=== PATIENT | male | born 1965 | race Hispanic/Latino ===

== ENCOUNTER 2022-11-10 08:36 | Outpatient (CLI) | payer OTHER | END 2022-11-10 08:37 | disposition home or self-care (01) | LOC: CSHRAD 08:36 | PROVIDERS: ATTEND Family Medicine | DX: R05.9 Cough, unspecified (principal); R06.02 Shortness of breath; R06.09 Other forms of dyspnea; R91.8 Other nonspecific abnormal finding of lung field; M47.26 Other spondylosis with radiculopathy, lumbar region | CPT/HCPCS: 71045; 72100 ==

== ENCOUNTER 2022-12-12 14:13 | Outpatient (CLI) | payer OTHER | END 2022-12-12 14:14 | disposition home or self-care (01) | LOC: CSHMRI 14:13 | PROVIDERS: ATTEND Family Medicine | DX: R05.2 Subacute cough (principal); R06.02 Shortness of breath; R06.09 Other forms of dyspnea; M54.16 Radiculopathy, lumbar region; R91.1 Solitary pulmonary nodule; M47.816 Spondylosis without myelopathy or radiculopathy, lumbar region; M43.16 Spondylolisthesis, lumbar region | CPT/HCPCS: 71046; 72120; 72148 ==

== ENCOUNTER 2022-12-30 11:33 | Outpatient (CLI) | payer OTHER | END 2022-12-30 11:34 | disposition home or self-care (01) | LOC: CSHRAD 11:33 | PROVIDERS: ATTEND Family Medicine | DX: M25.511 Pain in right shoulder (principal) ==

== ENCOUNTER 2023-04-18 15:21 | Outpatient (CLI) | payer OTHER | END 2023-04-18 15:22 | disposition home or self-care (01) | LOC: CSHMRI 15:21 | PROVIDERS: ATTEND Neurological Surgery | DX: M47.22 Other spondylosis with radiculopathy, cervical region (principal); M48.02 Spinal stenosis, cervical region; R91.1 Solitary pulmonary nodule; R05.3 Chronic cough | CPT/HCPCS: 71046; 72141 ==

== ENCOUNTER 2024-03-13 05:38 | Emergency (ER) | payer OTHER ==
[2024-03-13] MEDS ORDERED: Ondansetron PF 4 MG/2 ML Vial ONE (06:07)
[2024-03-13] MEDS ORDERED: Metoprolol Tartrate 5 MG (5 mL) VIAL ONE (06:08)
[2024-03-13] MEDS ORDERED: Insulin Regular, Human 100 UNIT/ML 10 ML VIAL ONE (06:08)
[2024-03-13] MEDS ORDERED: Labetalol HCl 100 MG/20 ML VIAL ONE (06:09)
[2024-03-13 06:23] LABS: #Basophils 0.06 10x3/uL (0.0-0.2); #Eosinophils 0.09 10x3/uL (0.0-0.5); #Monocytes 0.71 10x3/uL (0.0-1.1); #Neutrophils 4.45 10x3/uL (1.5-8.4); %Basophils 0.8 % (0.0-2.0); %Eosinophils 1.2 % (0.0-6.0); %Lymphocytes 28.2 % (18.0-47.0); %Monocytes 9.5 % (0.0-10.0); %Neutrophils 59.6 % (40.0-75.0); Hematocrit 41.9 % (38.8-50.0); Hemoglobin 14.2 g/dL (13.5-17.5); Mean Corpuscular HGB CONC 33.9 g/dL (32.0-36.0); Mean Corpuscular Hemoglobin 28.1 pg (27.0-33.0); Mean Corpuscular Volume 82.8 fL (81.2-95.1); Mean Platelet Volume 9.8 fL (7.4-10.4); Platelet Count 204 10x3/uL (150-450); RBC Distribution Width 12.6 % (11.5-14.5); Red Blood Cell (RBC) Count 5.06 10x6/uL (4.32-5.72); White Blood Cell (WBC) Count 7.5 10x3/uL (3.5-10.5)
[2024-03-13 06:37] LABS: ALT (SGPT) 46 U/L (8-55); AST (SGOT) 31 U/L (5-34); Albumin 3.9 g/dL (3.5-5.0); Alkaline Phosphatase 53 U/L (40-110); Anion Gap 20 mmol/L (10-20); BUN (Urea Nitrogen) 16 mg/dL (8.4-25.7); Bilirubin, Total 0.6 mg/dL (0.2-1.2); Calc. Creatinine Clearance 0 mL/min (70-130); Calcium 9.5 mg/dL (7.8-10.44); Carbon Dioxide 19 mmol/L (22-29); Chloride 101 mmol/L (98-107); Estimated GFR 73; Globulin 3.4 g/dL (2.4-3.5); Glucose 328 mg/dL (70-105); Lipase 68 U/L (8-78); Potassium 4.5 mmol/L (3.5-5.1); Protein, Total 7.3 g/dL (6.0-8.3); Sodium 135 mmol/L (136-145)
[2024-03-13 06:43] LABS: Troponin I Less than 0.010 ng/mL (< 0.028)
[2024-03-13] MEDS ORDERED: hydrALAZINE 20 MG/ML VIAL ONE (07:58)
[2024-03-13 09:05] LABS: Bilirubin Neg (Negative); Blood, Urine Negative (Negative); Clarity Slightly Cloudy (Clear); Glucose, Urine (Dipstick) >=1000 mg/dL (Negative); Ketone, Urine Negative (Negative); Leukocyte Negative (Negative); Nitrite Negative (Negative); Protein, Urine (Dipstick) 500 mg/dl (Neg-Trace); Specific Gravity, Urine 1.025 (1.005-1.030); Urobilinogen Normal mg/dL (Less than 2)
[2024-03-13 09:12] LABS: Acetaminophen Less than 10 mcg/mL (Less than 10); Alcohol Less than 10.0 mg/dL (Less than 10); Salicylate Less than 8.0 mg/dL (Less than 8.0)
[2024-03-13 09:12] LABS: Amphetamine Not Detected (NotDetected); Barbiturates Screen Not Detected (NotDetected); Benzodiazepine Screen Not Detected (NotDetected); Cocaine Metabolite Screen Not Detected (NotDetected); Methadone Not Detected (NotDetected); Methamphetamine Not Detected (NotDetected); Opiate Screen Not Detected (NotDetected); Oxycodone Screen Not Detected (NotDetected); Phencyclidine (PCP) Not Detected (NotDetected); THC/Cannabinoid Screen Not Detected (NotDetected); Tricyclic Screen Not Detected (NotDetected)
[2024-03-13] MEDS ORDERED: Losartan 50 MG TAB PO SCH (10:00)
[2024-03-13 10:01] LABS: Bacteria/HPF 1+ HPF (None Seen); CAUTI Indications for Culture Pelvic or flank pain; RBC/HPF 0-3 HPF (0-3); Squamous Epithelial 0-3 HPF (0-3); WBC/HPF 0-3 HPF (0-3)
[2024-03-13 10:02] LABS: Urine Culture Reflex No No
== END 2024-03-13 14:08 | disposition home or self-care (01) ==
LOC: CSHERS 05:38
DX: F32.A Depression, unspecified (principal); I10 Essential (primary) hypertension
CPT/HCPCS: 36416; 80053; 80306; 80307; 81001; 83605; 83690; 84484; 85025; 93005; 96374; 96375; J0360; J1815; J2405

== ENCOUNTER 2025-02-04 09:33 | Outpatient (CLI) | payer MEDICARE | END 2025-02-04 09:34 | disposition home or self-care (01) | LOC: CSHPUL 09:33 → CSHRAD 09:33 → CSHPUL 09:34 | PROVIDERS: ATTEND Internal Medicine | DX: R06.09 Other forms of dyspnea (principal); R05.3 Chronic cough; J98.4 Other disorders of lung | CPT/HCPCS: 94010; 94618; 94726; 94729 ==

== ENCOUNTER 2025-03-04 08:25 | Outpatient (CLI) | payer MEDICARE | END 2025-03-04 08:26 | disposition home or self-care (01) | LOC: CSHSLEEP 08:25 | PROVIDERS: ATTEND Internal Medicine | DX: G47.33 Obstructive sleep apnea (adult) (pediatric) (principal); R53.83 Other fatigue; E11.9 Type 2 diabetes mellitus without complications; I10 Essential (primary) hypertension | CPT/HCPCS: 95800 ==

== ENCOUNTER 2025-05-02 10:00 | Outpatient (CLI) | payer MEDICARE | END 2025-05-02 10:01 | disposition home or self-care (01) | LOC: CSHSLEEP 10:00 | PROVIDERS: ATTEND Internal Medicine | DX: G47.33 Obstructive sleep apnea (adult) (pediatric) (principal); R53.83 Other fatigue; E11.9 Type 2 diabetes mellitus without complications; I10 Essential (primary) hypertension; G47.61 Periodic limb movement disorder | CPT/HCPCS: 95811 ==